=== PATIENT | male | born 1990 | race Two or more races ===

== ENCOUNTER 2023-11-18 17:03 | Emergency (ER) | payer OTHER ==
[~2023-11-18] VITALS: Ht 167.6 cm; Wt 85.0 kg
[2023-11-18 18:27] VITALS: BP 128/83; PULSE 87; RESP 16; TEMP 97.1; O2SAT 97
[2023-11-18] MEDS: FLUORESCEIN SOD OPTH TEST STRIP RIGHTEYE ONE (18:56)
[2023-11-18] MEDS: TETRACAINE HCL 0.5% OPTH(EYE) SOLN 4ML RIGHTEYE ONE (18:57)
[2023-11-18] MEDS: SODIUM CHLORIDE 0.9% 1,000 ML IV ONE (18:57)
[2023-11-18] MEDS: TETANUS-DIPTH-ACEL PERTUSSIS 0.5ML SYR Tdap IM ONE (18:58)
[2023-11-18] MEDS ORDERED: ERY05OO OP (19:58)
== END 2023-11-18 20:51 | disposition home or self-care (01) ==
LOC: ER 17:03
DX: S00.211A Abrasion of right eyelid and periocular area, initial encounter (principal); X58.XXXA Exposure to other specified factors, initial encounter; Y93.89 Activity, other specified; Y92.89 Other specified places as the place of occurrence of the external cause; Y99.8 Other external cause status
CPT/HCPCS: 90471; 90715; 96360; 99283; J7030